=== PATIENT | male | born 1990 | race Caucasian/White ===

== ENCOUNTER 2018-06-03 20:42 | Emergency (ER) | payer SELFPAY ==
--- NOTE | 2018-06-03 20:47 | ED Physician Documentation ---
General Adult - HISTORIAN Historian: patient - HPI Stated Complaint: fever x 3 days Chief Complaint: Fever Onset: days ago (3) Timing: still present Severity: moderate Further Comments: yes (He states fever started 3 days ago. He has had 104 measureable temp. Cough started last night (productive) - he is a smoker. He has been exposed to illness via children. No dx illness. He has a headache and sore thraot. He took the last Tylenol one hour ago. No dysuria or rash. No N/V/D) - ROS CONST: fever, recent illness EYES/ENT: sore throat CVS/RESP: cough GI/: denies: vomiting, nausea MS/SKIN/LYMPH: denies: rash NEURO/PSYCH: headache - PAST HX Past History: none Immunizations: UTD Allergies/Adverse Reactions: Allergies Allergy/AdvReac Type Severity Reaction Status Date / Time No Known Allergies Allergy Verified 06/03/18 21:45 Home Medications: Ambulatory Orders Medication Instructions Recorded NK 06/03/18 - SOCIAL HX Smoking History: cigarettes Alcohol Use: none Drug Use: none - FAMILY HX Family History: No - REVIEWED ASSESSMENTS Nursing Assessment Reviewed: Yes Vitals Reviewed: Yes Progress - Progress Progress: 2223: results discussed. He states he can take Ibuprofen at home. Fever has decreased to 100.5. He has no other complaints. Significant other is questioning why no IV fluids. Mentioned that he has no nausea or vomiting - will check UA DG 2225: Discussed results and he states he did have a few episodes of diarrhea - will give liter of IV normal saline DG 2335: Discussed results and plan - agreeable DG ED Results Lab/Radiology - Radiology Radiology Impressions: PA and lateral chest Clinical history: Fever for 3 days. Cough. Findings: Examination of the chest in PA and lateral views demonstrates the lungs to be clear. Cardiovascular and mediastinal silhouettes are within normal limits. The bony thorax is intact. Impression: 1. Negative chest. Electronically signed on Jun 03, 2018 10:09:35 PM PROVIDER RELATIONS REPRESENTATIVE by: Baldev Jimenez General Adult Physical Exam - PHYSICAL EXAM GENERAL APPEARANCE: no distress EENT: no signs of dehydration, pharyngeal erythema, purulent nasal drainage, other (purulent drainage ) RESPIRATORY: no resp distress, chest non-tender, other (decreased breath sounds ) CVS: reg rate & rhythm, heart sounds normal ABDOMEN: soft, normal bowel sounds, no distension BACK: normal inspection SKIN: warm/dry, normal color EXTREMITIES: non-tender, normal range of motion, no evidence of injury, no edema NEURO: oriented X3 Discharge Clincal Impression: Fever Referrals: Amrit Tesfaye MD [STAFF PHYSICIAN] - 2 Days Comments: 1. Continue OTC meds for fever as directed 2. Increase fluids 3. See PCP in 2-4 days if symptoms do no improve 4. Return to ER for any concerns Condition: Stable Disposition: 01 HOME, SELF-CARE Decision to Admit: NO Date of Decison to Admit: 06/03/18 Decision Time: 23:35
[2018-06-03] MEDS ORDERED: IPRATROPIUM/ALBUTEROL SULFATE 3 ML AMPUL.NEB NEB ONE (21:12)
[2018-06-03] MEDS ORDERED: 0.9 % SODIUM CHLORIDE 1,000 ML IV ONE (22:50)
[2018-06-03] MEDS ORDERED: KETOROLAC TROMETHAMINE 30 MG/1ML VIAL IVP ONE (22:50)
[2018-06-03 22:56] VITALS: BP 135/68
[2018-06-03 23:22] LABS: MEAN CORPUSCULAR HEMOGLOBIN 30.4 pg (28.0-34.0)
[2018-06-03 23:23] LABS: BASOPHILS % 0.7 (0.0-1.5); EOSINOPHILS % 0.8 % (0.0-6.8); MONOCYTES % 10.3 % (0.0-11.0)
[2018-06-03 23:29] LABS: eGFR (Non-African) > 60
--- NOTE | 2018-06-04 03:00 | Diagnostic Imaging Report ---
[facility] [id number] [facility] [address] [place], [place]. [address] Report Submission Date: Jun 03, 2018 10:09:35 PM PRESIDENT[employer] Patient Study Name: JEREL RESENDEZ Date: Jun 03, 2018 9:42:26 PM [employer]IDENT[employer] Modality Type: DX Gender: M Description: CHEST : 89 Institution: [facility] Physician: ZACK BAJWA PA and lateral chest Clinical history: Fever for 3 days. Cough. Findings: Examination of the chest in PA and lateral views demonstrates the lungs to be clear. Cardiovascular and mediastinal silhouettes are within normal limits. The bony thorax is intact. Impression: 1. Negative chest. Electronically signed on Jun 03, 2018 10:09:35 PM PRESIDENT[employer] by: Baldev RODRIGUEZ
== END 2018-06-03 23:40 | disposition home or self-care (01) ==
LOC: ED 20:42
DX: R50.9 Fever, unspecified (principal)
CPT/HCPCS: 36415; 71046; 80053; 85025; 94640; 96365; 96375; 99283; 99284; J1885; J7030; S1016